=== PATIENT | male | born 1985 | race Two or more races ===

== ENCOUNTER 2018-08-05 19:44 | Emergency (ER) | payer SELFPAY ==
[~2018-08-05] VITALS: Ht 170.2 cm; Wt 81.6 kg
[2018-08-05 19:50] VITALS: BP 145/92
[2018-08-05] MEDS ORDERED: TRUVADA 200 MG1 EAC1 ORAL (19:53)
[2018-08-05] MEDS ORDERED: GENVOYA TABLET1 EACH PO (19:53)
[2018-08-05] MEDS ORDERED: PREDNISONE20 MG ORAL (20:19)
[2018-08-05] MEDS ORDERED: BACITRACIN-P28.35 GM TP (20:19)
[2018-08-05] MEDS ORDERED: CLARITIN10 M1 ORAL (20:19)
[2018-08-05] MEDS ORDERED: HYDROCORTISONE30 G2 TP (20:19)
[2018-08-05] MEDS ORDERED: BENADRYL25 M3 PO (20:19)
--- NOTE | 2018-08-05 20:21 | Emergency Room Report ---
History of Present Illness General Chief Complaint: Skin Rash/Abscess Source: Patient Present Illness HPI 32-year-old male patient presents ER complaining of multiple bug bites and diarrhea. Reports history of similar bug bites in the past, states that his place was fumigated but the bug bites to appear. Reports they're extremely pruritic. Denies fever, chest pain, shortness of breath, abdominal pain. Reports has not taken any medication for relief of symptoms. Reports there on his back, ears. Reports no bleeding or blisters. Also complaining of diarrhea for the past 2 days, reports watery. Denies blood in stool. Denies recent travel outside the states. Denies new foods. Reports very stressed about the bug bites. Reports has been eating and drinking during this time. denies vomiting.denies history of heart disease or diabetes. denies constipation. Allergies: Coded Allergies: No Known Allergies (Unverified , 08/05/18) Patient History Past Medical History: see triage record Reviewed Nursing Documentation: PMH: Agreed; PSxH: Agreed Nursing Documentation-PMH Past Medical History: No History, Except For Review of Systems All Other Systems: negative except mentioned in HPI Physical Exam Vital Signs Date Time Temp Pulse Resp B/P (MAP) Pulse Ox O2 Delivery O2 Flow Rate FiO2 08/05/18 19:48 98.4 60 16 145/92 99 98.4 Sp02 EP Interpretation: reviewed, normal General Appearance: well appearing, no apparent distress, alert, GCS 15, non- toxic Head: normocephalic, atraumatic Eyes: bilateral eye normal inspection, bilateral eye PERRL ENT: hearing grossly normal, normal pharynx, no angioedema, normal voice, uvula midline, moist mucus membranes Neck: full range of motion Respiratory: lungs clear, normal breath sounds, no rhonchi, no respiratory distress, no accessory muscle use, no wheezing, speaking full sentences Cardiovascular #1: regular rate, rhythm, no edema Gastrointestinal: non tender, soft, no mass, non-distended, no guarding, no rebound Genitourinary: no CVA tenderness Musculoskeletal: back normal, digits/nails normal, gait/station normal, normal range of motion, non-tender Psychiatric: mood/affect normal Skin: other - multiple erythematous macules with overlying urticaria noted on lower lumbar spine and left forearm, surrounding erythema or edema, no fluctuance or induration, no tenderness to palpation, no blisters or vesicles, no central clearing, no satellite lesions, no linear burrows Lymphatic: no adenopathy Medical Decision Making PA Attestation Dr. Morrison is my supervising Physician whom patient management has been discussed with. Diagnostic Impression: Primary Impression: Bug bite Additional Impression: Diarrhea ER Course Pt. presents to the ED c/o bug bite and diarrhea. Ddx considered but are not limited to atopic dermatitis, bug bite, urticaria, allergic reaction, viral syndrome, gastritis, enteritis, Vital signs: are WNL, pt. is afebrile ER COURSE: Physical exam consistent with localized inflammation secondary to likely bug bite. Do not scratch, apply cool compresses to affected area. Take Claritin during the day and Benadryl at night for itching symptoms. apply topical creams to affected area, do not apply to face her skin creases. low suspicion for cellulitis, does not require oral antibiotics at this time. No fluctuance or induration requiring drainage. Followup with PCP and request referral to derm. do not scratch or itch apply cool compresses to affected areas. provided patient with dose prednisone ER for increasing symptoms, provide Rx to home, begin taking tomorrow. Work note provided. Patient informed of likely viral cause of symptoms.May also be stress related. No fever, no blood in stool, no recent travel, does not require abx treatment at this time. No signs of dehydration, moist mucus membranes, cap refill less than 2 seconds, normal skin turgor. Patient reports eating and drinking normally. Patient instructed on BRAT diet. Patient instructed to remain hydrated, drink plenty of fluids. Patient questions asked and answered. Patient states understanding and agreement to treatment plan. DISCHARGE: -Rx given for Claritin -Rx given for Benadryl for pruritis. SE may cause drowsiness. -Rx given for hydrocortisone cream. Do not apply to face or skin creases. -Rx given for Bacitracin -Rx given for prednisone, first dose given in the ER, patient taking tomorrow. At this time pt. is stable for d/c to home. Patient resting comfortably, in no acute distress, nontoxic appearing. Care plan and follow up instructions have been discussed with the patient prior to discharge. Patient provided with printed patient care instructions, and any necessary prescriptions. Patient instructed to follow-up with primary care provider in 3 - 5 days. Patient questions asked and answered. Patient reports understanding and agreement to treatment plan. ER precautions given. Patient instructed to return to ER immediately for any new or worsening of symptoms including but not limited to increasing SOB, persistent fever. - Please note that this Emergency Department Report was dictated using [employer] games dealer technology software, occasionally this can lead to erroneous entry secondary to interpretation by the dictation equipment. Last Vital Signs Date Time Temp Pulse Resp B/P (MAP) Pulse Ox O2 Delivery O2 Flow Rate FiO2 08/05/18 19:50 98.4 60 16 145/92 99 98.4 Disposition: HOME, SELF-CARE Condition: Stable Scripts Bacitracin/Polymyxin B Sulfate (BACITRACIN-POLYMYXIN OINTMENT) 28.35 Gm Oint...g. 1 APPLIC TP BID, #28 GM Prov: Kurtis Bernardo 08/05/18 Hydrocortisone (Hydrocortisone Cream 2.5%) Y Cream.appl 1 APPLIC TP BID, #28 GM Prov: Kurtis Bernardo 08/05/18 Diphenhydramine HCl (Benadryl) 25 Mg Capsule 25 MG PO DAILY, #30 CAP Prov: Kurtis Bernardo 08/05/18 Loratadine (CLARITIN) 10 Mg Tab.rapdis 10 MG ORAL DAILY, #30 TAB Prov: Kurtis Bernardo 08/05/18 Prednisone* (PREDNISONE*) 20 Mg Tablet 40 MG ORAL DAILY for 3 Days, #6 TAB Prov: Kurtis Bernardo 08/05/18 Patient Instructions: Bedbugs, [id number], Diarrhea, Adult, [id number], Food Choices to Help Relieve Diarrhea, Adult, Insect Bite, [id number] Additional Instructions: Followup with primary care provider in 3 -5 days. Request referral to dermatology as needed. Avoid spicy foods, avoid dairy foods. BRAT diet: bananas, rice, apple sauce, toast. Consider Immodium for diarrhea and Tylenol for pain symptom Do not scratch or itch. Apply cool compresses to affected area. Wash all clothes and bedding. Do not apply topical steroid medication to face or skin creases. SE Benadryl drowsiness, do not take prior to drinking, driving, operating heavy machinery. Take Claritin during the day and Benadryl at night for itching symptoms. Take medications as directed. Burst dose of prednisone given in the ER, begin taking prednisone tomorrow. Patient questions asked and answered. ER precautions given, patient instructed to return to ER immediately for any new or worsening of symptoms. [facility] Kurtis Bernardo Aug 05, 2018 20:21
[2018-08-05 20:30] VITALS: BP 145/92
== END 2018-08-05 20:30 | disposition home or self-care (01) ==
LOC: EMR 20:30
DX: T14.8XXA Other injury of unspecified body region, initial encounter (principal); W57.XXXA Bitten or stung by nonvenomous insect and other nonvenomous arthropods, initial encounter; Y93.9 Activity, unspecified; Y92.9 Unspecified place or not applicable; R19.7 Diarrhea, unspecified
CPT/HCPCS: 99283; J7512